=== PATIENT | male | born 1985 | race Caucasian/White ===

== ENCOUNTER → 2016-06-13 | Outpatient (CLI) | payer OTHER ==
[~2016-06-13] MED LIST: ALBU0.632 IH; ALBUTEROL INH; ALBUTEROL NEB; ALEIVE; CEPH500C PO; DOXY100C2 PO; PRD50T PO
--- NOTE | 2016-06-13 11:58 | Diagnostic Imaging Report ---
3 views of the lumbar spine. INDICATION: Back pain. FINDINGS: There is straightening of the lumbar spine. The alignment of the posterior spinal line, however, is satisfactory The vertebral body heights are preserved. The disc heights are also preserved. There is minimal osteophyte formation anteriorly at L4-L5 level. Indeterminate right flank calcifications are seen, could be fecaliths. IMPRESSION: Minimal degenerative changes. Straightening of the lumbar spine curvature could be secondary to muscle spasm. Dictated by: Dictated on workstation # [id number]
== END ==
LOC: RAD 08:53
PROVIDERS: ATTEND Nurse Practitioner
DX: M54.5 Low back pain (principal)
CPT/HCPCS: 72100